=== PATIENT | male | born 1965 | race Caucasian/White ===

== ENCOUNTER → 2016-06-09 | Outpatient (CLI) | payer MEDICARE ==
--- NOTE | 2016-06-09 11:53 | REP ---
MRI LEFT SHOULDER: TECHNIQUE: Axial T2 fat sat, gradient echo, sagittal oblique T2 fat sat, coronal oblique T1, T2 fat sat. There is increased signal on T2-weighted images extending through the entire thickness of the supraspinatus tendon at its mid aspect, consistent with a partial full thickness tear. There is focal fluid signal in the infraspinatus muscle near the musculotendinous junction, compatible with a partial tear of the infraspinatus muscle. The other rotator cuff tendons are intact. There are mild hypertrophic degenerative changes of the acromioclavicular joint with curved shape of the acromion. Biceps tendon is within the bicipital groove. There is mild surrounding fluid. There is no Hill-Sachs deformity. The deltoid muscle is unremarkable. Biceps labral complex appears intact. I do not see definite labral tear. There is no bone marrow edema or occult fracture. Small amount of subacromial-subdeltoid fluid is seen. No paralabral cyst is seen. IMPRESSION: Partial full thickness tear supraspinatus tendon. Partial tear infraspinatus muscle just proximal to the musculotendinous junction. Mild hypertrophic degenerative changes acromioclavicular joint, mildly curved shape of the acromion. No definite labral tear. Mild fluid in the subacromial-subdeltoid bursae. Signed by Jovi Byrnes MD 06/09/2016 04:37 P
== END ==
LOC: M RAD 09:13
PROVIDERS: ATTEND Neurological Surgery
DX: M75.42 Impingement syndrome of left shoulder (principal)

== ENCOUNTER → 2017-08-31 | Outpatient (CLI) | payer MEDICARE | LOC: M WUC 17:59 | DX: M25.562 Pain in left knee (principal); M17.12 Unilateral primary osteoarthritis, left knee | CPT/HCPCS: 73564 ==